=== PATIENT | female | born 1985 | race Caucasian/White ===

== ENCOUNTER 2017-06-20 18:33 | Emergency (ER) | payer OTHER ==
[~2017-06-20] VITALS: Ht 160 cm; Wt 107.1 kg
[~2017-06-20 18:33] MED LIST: ADVIL,NUPRIN,M200 MG PO; COLD & FLU PO; DOCUSATE SODIU100 MG PO; ENDOCET 5-3251 EACH PO; FERROUS SULFAT325 MG PO; HYDROCORTISON28.4 GM TP; IBUPROFEN800 MG PO; MEDI PO; MOTRIN800 MG PO; NOHOMEMEDS; NORCO 5/3251 TABLET PO; OMEPRAZOLE10 M1 PO; PERCOCET 5/31 TABLET PO; PRENATAL MULTI1 EAC2 PO; PRENATAL TABLE1 EAC3 PO; REGLAN10 MG PO; TOPAMAX25 MG PO; TYLENOL EXTRA500 MG PO; ULTRAM50 MG PO; [UNRECOGNIZED DRUG - OTHER] PO
[2017-06-20 21:02] LABS: HEMATOCRIT 37.1 % (36.0-46.0); MCH 26.8 PG (29.0-34.0); MCHC 32.3 G/DL (30.0-36.0); PLATELET COUNT 364 K/uL (156-360); RBC DIS.WIDTH-CV 14.3 % (11.8-14.6); RED BLOOD COUNT 4.47 M/uL (3.80-5.20); WHITE BLOOD COUNT 10.8 K/uL (4.1-10.2)
[2017-06-20 21:14] LABS: CHLORIDE 104 mEq/L (99-109); POTASSIUM 3.9 mEq/L (3.7-5.4); SODIUM 139 mEq/L (136-147)
[2017-06-20 21:16] LABS: GLUCOSE 90 mg/dL (70-99)
[2017-06-20 21:17] LABS: ANION GAP 10 MEQ/L (2-14)
[2017-06-20 21:18] LABS: TOTAL BILIRUBIN 0.3 mg/dL (0.0-1.0)
[2017-06-20 21:20] LABS: ALKALINE PHOSPHATASE 80 IU/L (3-129); GFR ESTIMATE (CALCULATED) > 59 mL/min/
[2017-06-20 21:21] LABS: UREA NITROGEN (BUN) 10 mg/dL (9-23)
[2017-06-20 21:23] LABS: TROP-I INTERPRETATION NEGATIVE; TROPONIN-I < 0.01 ng/mL (0.0-0.30)
[2017-06-20 22:10] VITALS: BP 140/90
== END 2017-06-20 22:10 | disposition home or self-care (01) ==
LOC: EME 18:33
PROVIDERS: Nurse Practitioner Family
DX: R00.2 Palpitations (principal); Z88.0 Allergy status to penicillin; Z88.1 Allergy status to other antibiotic agents
CPT/HCPCS: 71020; 80053; 84484; 85027; 93005; 99281; 99284